=== PATIENT | male | born 1995 | race Caucasian/White ===

== ENCOUNTER 2019-07-12 16:43 | Emergency (ER) | payer BC ==
[~2019-07-12 16:43] MED LIST: ONDA4TAB PO
--- NOTE | 2019-07-12 16:46 | ER Report ---
History and Physical Time Seen By MD: 16:42 HPI/ROS CHIEF COMPLAINT: Headache and vomiting HISTORY OF PRESENT ILLNESS: This is a 24-year-old male who presents to the emergency department for headache and vomiting. Patient states about 6 hours ago he developed some nausea, some vomiting, has also developed some diarrhea within the last 1-2 hours. He's been on a road trip, was in [place] and now a [place], she was hiking today, he's also developed a headache he states that the headache and the nausea and vomiting developed around the same time. No blood in the emesis or diarrhea. No fevers or chills. He states he does have headaches from time to time, this is not unusual. No meningismus. He states it is possible that he came into contact with some contaminated water, he's not entirely sure when. No rashes, no chest pain or shortness of breath. No abdominal pain. REVIEW OF SYSTEMS: Constitutional: No fever, no chills. Eyes: No discharge. ENT: No sore throat. Cardiovascular: No chest pain, no palpitations. Respiratory: No cough, no shortness of breath. Gastrointestinal: As above. Genitourinary: No hematuria. Musculoskeletal: No back pain. Skin: No rashes. Neurological: As above. Allergies: Coded Allergies: lamotrigine (Verified Allergy, Mild, RASH, 02/26/15) Home Meds Active Scripts Ondansetron Hcl (ZOFRAN) 4 Mg Tablet, 4 MG PO Q4-6H PRN for prn, #20 TAB Prov:BIRGIT MCCARTY [facility]- 07/12/19 Ondansetron (ZOFRAN ODT) 4 Mg Tab.rapdis, 4 MG PO Q6H PRN for NAUSEA/VOMITING, #20 TAB 0 Refills Prov:MIHIR MENDEZ MD 02/26/15 Past Medical/Surgical History The patient has a past medical and surgical history of a stye. Reviewed Nurses Notes: Yes Hx Smoking: No Constitutional Vital Sign - Last 24 Hours 07/12/19 07/12/19 07/12/19 07/12/19 16:43 16:47 17:00 17:13 Temp 97.5 Pulse ??? 76 73 Resp 18 B/P (MAP) 144/76 (98) 144/76 122/83 (96) Pulse Ox 99 99 O2 Delivery Room Air 07/12/19 07/12/19 07/12/19 07/12/19 17:30 17:43 18:00 18:13 Pulse 75 76 B/P (MAP) 115/89 (98) 133/90 (104) Pulse Ox 97 96 07/12/19 07/12/19 07/12/19 19:00 20:00 20:30 B/P (MAP) 120/80 (93) 133/82 (99) 128/62 (84) Physical Exam General Appearance: The patient is alert, has no immediate need for airway protection and no signs of toxicity, slightly pale-appearing. Eyes: Pupils equal and round no pallor or injection. ENT, Mouth: Mucous membranes are moist. Respiratory: There are no retractions, lungs are clear to auscultation. Cardiovascular: Regular rate and rhythm. No murmurs, clicks or rubs. Gastrointestinal: Abdomen is soft and non tender, no masses, bowel sounds normal. Neurological: Alert and oriented 4. Moving all chemistries. Following all commands. No focal neuro deficits. Skin: Warm and dry, no rashes. Musculoskeletal: Neck is supple non tender. Extremities are nontender, nonswollen and have full range of motion. DIFFERENTIAL DIAGNOSIS: After history and physical exam differential diagnosis was considered for nausea and vomiting including but not limited to gastroenteritis, gastritis, appendicitis, and medication side effect. Medical Decision Making Data Points Result Diagram: 07/12/19 1654 07/12/19 1654 Laboratory Hematology Test 07/12/19 16:54 White Blood Count 5.7 k/uL (4.5-11.0) Red Blood Count 5.14 M/uL (4.00-5.60) Hemoglobin 15.7 g/dL (14.0-18.0) Hematocrit 46.1 % (42.0-52.0) Mean Corpuscular Volume 89.6 fL (80.0-96.0) Mean Corpuscular Hemoglobin 30.6 pg (26.0-33.0) Mean Corpuscular Hemoglobin Concent 34.1 g/dL (32.0-36.0) Red Cell Distribution Width 13.0 % (11.5-14.5) Platelet Count 197 K/uL (150-450) Mean Platelet Volume 9.0 fL (7.2-11.1) Neutrophils (%) (Auto) 67.5 % (39.4-72.5) Lymphocytes (%) (Auto) 23.4 % (17.6-49.6) Monocytes (%) (Auto) 8.1 % (4.1-12.4) Eosinophils (%) (Auto) 0.8 % (0.4-6.7) Basophils (%) (Auto) 0.2 % (0.3-1.4) L Nucleated RBC Relative Count (auto) 0.1 /100WBC Neutrophils # (Auto) 3.8 K/uL (2.0-7.4) Lymphocytes # (Auto) 1.3 K/uL (1.3-3.6) Monocytes # (Auto) 0.5 K/uL (0.3-1.0) Eosinophils # (Auto) 0.0 K/uL (0.0-0.5) Basophils # (Auto) 0.0 K/uL (0.0-0.1) Nucleated RBC Absolute Count (auto) 0.00 K/uL Chemistry Test 07/12/19 16:54 Sodium Level 139 mmol/L (137-145) Potassium Level 3.7 mmol/L (3.5-5.0) Chloride Level 101 mmol/L (98-107) Carbon Dioxide Level 27 mmol/L (22-30) Blood Urea Nitrogen 21 mg/dl (9-21) Creatinine 1.10 mg/dl (0.66-1.25) Glomerular Filtration Rate Calc > 60.0 Random Glucose 106 mg/dl (75-110) Calcium Level 9.6 mg/dl (8.4-10.2) Total Bilirubin 0.6 mg/dl (0.2-1.3) Aspartate Amino Transf (AST/SGOT) 25 U/L (0-35) Alanine Aminotransferase (ALT/SGPT) 48 U/L (0-56) Alkaline Phosphatase 53 U/L (0-126) Total Protein 7.7 g/dl (6.3-8.2) Albumin 4.6 g/dl (3.5-5.0) Lipase 36 U/L (23-300) EKG/Imaging Imaging FACILITY: [facility] PATIENT NAME: Manjit Cordero : 1995 MR: [id number] V: [id number] EXAM DATE: ORDERING PHYSICIAN: BIRGIT MCCARTY TECHNOLOGIST: Location: [facility] - [place] Patient: Manjit Cordero : 1995 Visit/Account:[id number] Date of Sevice: 07/12/2019 Computed tomograpy abdomen and pelvis with IV contrast Indication: Abdominal pain. Nausea, vomiting and diarrhea. Comparison: None available. Technique: Transaxial computed tomography images were obtained through the abdomen and pelvis following the injection of nonionic iodinated intravenous contrast. Reformatted coronal and sagittal images were also obtained. One of the following dose optimization techniques was utilized in the performance of this exam: Automated exposure control; adjustment of the mA and/or kV according to the patient's size; or use of an iterative reconstruction technique. Specific details can be referenced in the facility's radiology CT exam operational policy. Contrast: 75 ml of Isovue-370 IV contrast. Findings: Lower lung bee: Respiratory motion limits evaluation of the lung bases. There is a 4 mm nodule seen within the right middle lobe. In a patient this age, benign etiologies would be favored. Liver: No focal parenchymal abnormality of the liver. Biliary: Gallbladder appears unremarkable as well as the intra and extra hepatic biliary system. Pancreas: Normal appearance. Spleen: Normal appearance. Adrenal glands: Unremarkable. Kidneys / retroperitoneum: No evidence of nephrolithiasis or hydronephrosis Bowel / peritoneum / mesenteries: The visualized small and large bowel appear unremarkable. Appendix appears unremarkable. Lymph node assessment: No pathologic adenopathy identified. Pelvic structures: Appear unremarkable. There is trace, nonspecific free pelvic fluid. Vessels: No significant atherosclerotic calcifications seen throughout a nonaneurysmal abdominal aorta and branches. Musculoskeletal / Body wall: No acute or aggressive osseous abnormality. IMPRESSION: 1. No acute inflammatory process within the abdomen or the pelvis. 2. Trace, nonspecific free pelvic fluid. 3. 4 mm right middle lobe pulmonary nodule. If this is a low risk patient for malignancy, benign etiologies would be favored. Report Dictated By: Keenan Paul at 07/12/2019 7:57 PM Report E-Signed By: Keenan Paul at 07/12/2019 8:08 PM WSN:[facility] ED Course/Re-evaluation Clinical Indication for ER IV: Hydration, IV Access ED Course The patient was admitted to room. History of physical obtained. Differentialwere considered. An IV was started. A CBC, CMP, lipase were obtained. 1L normal saline bolus was given. 12.5 mg IV Phenergan. Patient continued to have nausea and vomiting, was given an additional 4 mg IV Zofran, an additional 1 L of normal saline. Patient was moaning, very anxious is given 0.5 mg IV Ativan, this did help calm him down, he is now complaining of abdominal pain, I talked to he and his friend at the bedside, we'll proceed with a CT of the abdomen and pelvis. The CT scan was negative for intra-abdominal pathology, there was a 4 mm nodule to the right middle lung, as the patient is otherwise healthy, the likelihood of malignancy is very unlikely. Patient was given one additional dose of 4 mg IV Zofran, I did review the results with the patient and his friend at the bedside, he is very sleepy and therefore the majority the instructions were given to the patient's friend. He was sent home with a take-home bottle of Zofran, a prescription for Zofran was sent to the patient's pharmacy, I did recommend a clear liquid diet for the next 48 hours then advance to the BRAT diet, then follow-up with his primary care provider or return to the ER for any other concerns, patient was discharged home. Decision to Disposition Date: Jul 12, 2019 Decision to Disposition Time: 20:24 Depart Departure Latest Vital Signs Vital Signs Date Time Temp Pulse Resp B/P (MAP) Pulse Ox O2 Delivery O2 Flow Rate FiO2 07/12/19 20:30 128/62 (84) 07/12/19 18:13 76 96 07/12/19 16:47 97.5 18 Room Air Impression: Primary Impression: Viral gastroenteritis Condition: Improved Disposition: HOME OR SELF-CARE New Scripts Ondansetron Hcl (ZOFRAN) 4 Mg Tablet 4 MG PO Q4-6H PRN for prn, #20 TAB Prov: BIRGIT MCCARTY [facility] 07/12/19 Patient Instructions: Clear Liquid Diet (ED), Gastroenteritis (ED) Additional Instructions: Your laboratory results were normal, no intra-abdominal pathology that was concerning on CT scan. This is likely a severe case of viral gastroenteritis. Clear liquid diet for the next 48 hours. Then advance to a BRAT diet, bananas, rice and [place]. Be sure to drink plenty of water. Get plenty of rest. You may take Zofran every 6 hours as needed for nausea and vomiting. This may take several days to pass he went up to a week, if it extends beyond a week follow-up with your primary care provider or return to the emergency department. BIRGIT MCCARTY [facility] Jul 12, 2019 16:46
[2019-07-12] MEDS ORDERED: NS(*) 0.9% 1000 ML BAG 1,000 ML IV ONE ×2 (16:52→18:20)
[2019-07-12] MEDS ORDERED: PROMETHAZINE 25 MG/ML 1 ML AMP IVP ONE (16:55)
[2019-07-12 17:11] LABS: PLATELET COUNT, AUTOMATED 197 K/uL (150-450)
[2019-07-12] MEDS ORDERED: ONDANSETRON 4 MG/2 ML VIAL IVP ONE ×2 (18:20→20:20)
[2019-07-12] MEDS ORDERED: LORazepam 2 MG/ML VIAL IVP ONE (18:45)
[2019-07-12] MEDS ORDERED: IOPAMIDOL 76% 100 ML INFUS BTL 100 ML ONE (19:22)
--- NOTE | 2019-07-12 20:17 | RADIOLOGY IMAGING REPORT ---
FACILITY: [facility] - [place] PATIENT NAME: Manjit Cordero : 1995 MR: [id number] V: [id number] EXAM DATE: ORDERING PHYSICIAN: BIRGIT MCCARTY TECHNOLOGIST: [place] [facility] [place] Patient: Manjit Cordero : 1995 Visit/Account:[id number] Date of Sevice: 07/12/2019 Computed tomograpy abdomen and pelvis with IV contrast Indication: Abdominal pain. Nausea, vomiting and diarrhea. Comparison: None available. Technique: Transaxial computed tomography images were obtained through the abdomen and pelvis follo wing the injection of nonionic iodinated intravenous contrast. Reformatted coronal and sagittal image s were also obtained. One of the following dose optimization techniques was utilized in the performance of this exam: Autom ated exposure control; adjustment of the mA and/or kV according to the patient's size; or use of an i terative reconstruction technique. Specific details can be referenced in the facility's radiology C T exam operational policy. Contrast: 75 ml of Isovue-370 IV contrast. Findings: Lower lung bee: Respiratory motion limits evaluation of the lung bases. There is a 4 mm nodule se en within the right middle lobe. In a patient this age, benign etiologies would be favored. Liver: No focal parenchymal abnormality of the liver. Biliary: Gallbladder appears unremarkable as well as the intra and extra hepatic biliary system. Pancreas: Normal appearance. Spleen: Normal appearance. Adrenal glands: Unremarkable. Kidneys / retroperitoneum: No evidence of nephrolithiasis or hydronephrosis Bowel / peritoneum / mesenteries: The visualized small and large bowel appear unremarkable. Appendix appears unremarkable. Lymph node assessment: No pathologic adenopathy identified. Pelvic structures: Appear unremarkable. There is trace, nonspecific free pelvic fluid. Vessels: No significant atherosclerotic calcifications seen throughout a nonaneurysmal abdominal aort a and branches. Musculoskeletal / Body wall: No acute or aggressive osseous abnormality. IMPRESSION: 1. No acute inflammatory process within the abdomen or the pelvis. 2. Trace, nonspecific free pelvic fluid. 3. 4 mm right middle lobe pulmonary nodule. If this is a low risk patient for malignancy, benign et iologies would be favored. Report Dictated By: Keenan Paul at 07/12/2019 7:57 PM Report E-Signed By: Keenan Paul at 07/12/2019 8:08 PM WSN:[id number]
[2019-07-12] MEDS ORDERED: ONDA4TAB97 PO (20:29)
[2019-07-12 20:30] VITALS: BP 128/62
[2019-07-12] MEDS ORDERED: ONDANSETRON 4 MG ODT TH SL ONE (20:30)
== END 2019-07-12 21:22 | disposition home or self-care (01) ==
LOC: ER 16:50
DX: A08.4 Viral intestinal infection, unspecified (principal)
CPT/HCPCS: 74177; 83690; 85025; 96361; 96374; 96375; 99284; J2060; J2405; J2550; J7030; Q9967; S0119; 82040; 82247; 82310; 82374; 82435; 82565; 82947; 84075; 84132; 84155; 84295; 84450; 84460; 84520